=== PATIENT | male | born 1940 | race Caucasian/White ===

== ENCOUNTER 2022-11-19 13:52 | Emergency (ER) | payer MEDICARE, BC ==
[2022-11-19 14:08] VITALS: RESP 18; TEMP 97.6
[2022-11-19] MEDS ORDERED: OXYMETAZOLINE 0.05% NASL SPRAY 1 SPRAY BOTTLE NASAL STA (14:10)
--- NOTE | 2022-11-19 14:41 | ED ---
ENT HPI - General Chief complaint: ENT Stated complaint: Nosebleed Time Seen by Provider: 11/19/22 14:00 Source: patient, RN notes reviewed Mode of arrival: EMS Limitations: no limitations - History of Present Illness Initial comments: This is an 82-year-old male who presents to the emergency department for a nosebleed. States that he had his right nostril cauterized yesterday due to problems with ongoing nosebleeds. He went for a walk today, and felt like his nose started running. He went to blow and started to get bleeding out of the right nostril. He was unable to get this to stop, prompting him to call EMS. Not taking any blood thinners. States that he called his ENT, and they advised him to purchase [id number] nasal spray, be did not have time to do this. Denies any pain associated with this. EMS did put a clamp on his nose in route. Denies any fevers, chills, sore throat, cough, dyspnea, chest pain, palpitations, abdominal pain, nausea, vomiting, diarrhea, back pain, or headaches. MD complaint: epistaxis - Related Data Allergies Allergy/AdvReac Type Severity Reaction Status Date / Time No Known Allergies Allergy Verified 11/19/22 14:02 Review of Systems ROS Statement: Those systems with pertinent positive or pertinent negative responses have been documented in the HPI. ROS Other: All systems not noted in ROS Statement are negative. Past Medical History Past Medical History: Hyperlipidemia, Hypertension History of Any Multi-Drug Resistant Organisms: None Reported Past Surgical History: Heart Catheterization With Stent, Orthopedic Surgery Past Psychological History: No Psychological Hx Reported Smoking Status: Never smoker Past Alcohol Use History: Occasional Past Drug Use History: None Reported General Exam Limitations: no limitations General appearance: alert, in no apparent distress Head exam: Present: atraumatic, normocephalic, normal inspection ENT exam: Present: other (Fresh blood in the right naris consistent with recent active bleeding. No septal hematoma. No obvious ulcerations or injuries.) Respiratory exam: Present: normal lung sounds bilaterally. Absent: respiratory distress, wheezes, rales, rhonchi, stridor Cardiovascular Exam: Present: regular rate, normal rhythm, normal heart sounds. Absent: systolic murmur, diastolic murmur, rubs, gallop, clicks Neurological exam: Present: alert, oriented X3, CN II-XII intact Psychiatric exam: Present: normal affect, normal mood Skin exam: Present: warm, dry, intact, normal color. Absent: rash Course Vital Signs 11/19/22 11/19/22 11/19/22 13:55 16:37 17:18 Temperature 97.6 F 97.6 F Pulse Rate 51 L 50 L 50 L Respiratory 18 18 18 Rate Blood Pressure 137/81 150/72 150/72 O2 Sat by Pulse 97 97 97 Oximetry Medical Decision Making - Medical Decision Making This is an 82-year-old male who presents to the emergency department for epistaxis. Was pt. sent in by a medical professional or institution? @ -No Did you speak to anyone other than the patient for history? @ -No Did you review nursing and triage notes? @ -Yes, and I agree, it is accurate with regards to the patient's symptoms. Were old charts reviewed? @ -No Differential Diagnosis? @ -Differential Epistaxis: Coagulopathy, injury, neoplasm, allergic rhinitis, this is not meant to be an all-inclusive list. EKG interpreted by me (3pts min.)? @ -Not obtained X-rays interpreted by me (1pt min.)? @ -Not obtained CT interpreted by me (1pt min.)? @ -Not obtained U/S interpreted by me (1pt. min.)? @ -Not obtained What testing was considered but not performed? (CT, X-rays, U/S, labs)? Why? @ -None What meds were considered but not given? Why? @ -None Did you discuss the management of the patient with other professionals? @ -No Did you reconcile home meds? @ -No Was smoking cessation discussed for >3mins.? @ -No Was critical care preformed (if so, how long)? @ -No Were there social determinants of health that impacted care today? How? (Homelessness, low income, unemployed, alcoholism, drug addiction, transportation, low edu. Level, literacy, decrease access to med. care, [facility], rehab)? @ -No Was there de-escalation of care discussed even if they declined? (Discuss DNR or withdrawal of care, Hospice)? @ -No What co-morbidities impacted this encounter? (DM, HTN, Smoking, COPD, CAD, Cancer, CVA, Hep., AIDS, mental health diagnosis, sleep apnea, morbid obesity)? @ -None Was patient admitted / discharged? @ -Discharged. When the patient was first evaluated, he blew his nose and a significant amount of blood clots were expelled. We applied Afrin nasal spray and clamped his nose for approximately 20 minutes. Afterwards, he did still have some minor residual bleeding. Phenylephrine nasal spray was applied and the nose was clamped for around 20 minutes. Afterwards, the bleeding had stopped. We watched the patient for approximately 25 minutes afterwards with the clamp removed, and the bleeding did not resume. He was discharged home in stable condition with both nasal sprays and nose clamps with instructions on using them if the bleeding resumes. He will otherwise follow up with his PCP and ENT for reevaluation. Undiagnosed new problem with uncertain prognosis? @ -None Drug Therapy requiring intensive monitoring for toxicity (Heparin, Nitro, Insulin, Cardizem)? @ -None Were any procedures done? @ -None Diagnosis/symptom? @ -Epistaxis Acute, or Chronic, or Acute on Chronic? @ -Acute Uncomplicated (without systemic symptoms) or Complicated (systemic symptoms)? @ -Uncomplicated Side effects of treatment? @ -None Exacerbation, Progression, or Severe Exacerbation] @ -Not applicable Poses a threat to life or bodily function? @ -No Return precautions reviewed in depth, the patient is instructed to return to the emergency department with any new, worsening, or concerning symptoms. Patient verbalized understanding. This case was discussed in detail with the attending ED physician, Dr. Han. Presentation, findings, and treatment plan discussed in detail as well. Disposition Clinical Impression: Epistaxis Disposition: HOME SELF-CARE Instructions (If sedation given, give patient instructions): Nosebleed (ED) Additional Instructions: Return to the emergency department with any new, worsening, or concerning symptoms. If the bleeding resumes, apply a nasal clamp and keep this in place for about 20 minutes. If that does not stop the bleeding, apply the Afrin nasal spray provided and clamp it for another 20 minutes. If that is not effective, you can apply the phenylephrine nasal spray provided and again, clamp this for 20 minutes. Follow up with your primary care provider in 1-2 days. Is patient prescribed a controlled substance at d/c from ED?: No Referrals: Keith Pierre MD [Primary Care Provider] - 1-2 days
[2022-11-19] MEDS ORDERED: PHENYLEPHRINE 0.25% NASAL SPRA 1 SPRAY/ML NASAL STA (15:25)
[2022-11-19] MEDS ORDERED: LIDOCAINE/EPINEPHR/TETRACAINE 5 ML BOTTLE TOPICAL ONE (15:25)
[2022-11-19 16:39] VITALS: BP 150/72; PULSE 50
== END 2022-11-19 17:19 | disposition home or self-care (01) ==
LOC: EC 13:52
DX: R04.0 Epistaxis (principal); I10 Essential (primary) hypertension
CPT/HCPCS: 99283